=== PATIENT | female | born 1975 | race Caucasian/White ===

== ENCOUNTER 2023-02-09 09:25 | Observation (INO) | payer OTHER ==
[2023-03-09] MEDS ORDERED: EXPAREL 133 MG/10 ML VIAL IJ ONE (08:22)
[2023-03-09] MEDS ORDERED: Transderm Scop 1.5MG Patch TOP PRN (09:02)
[2023-03-09] MEDS ORDERED: Reglan 10 MG/2 ML IV ONE (09:02)
[2023-03-09] MEDS ORDERED: Pepcid 20 MG VIAL IV ONE ×2 (09:02→09:05)
[2023-03-09] MEDS ORDERED: Versed 2 MG/2 ML Injection IV PRN (09:02)
[2023-03-09] MEDS ORDERED: Transderm Scop 1.5MG Patch ONE (09:05)
[2023-03-09] MEDS ORDERED: Versed 2 MG/2 ML Injection ONE (09:05)
[2023-03-09] MEDS ORDERED: Lactated Ringers 1,000 ML IV ONE ×2 (09:05→12:12)
[2023-03-09] MEDS ORDERED: CLINDAMYCIN-D5W 900 MG/50 ML*** 900 MG/50 ML BAG IV ONE (09:05)
[2023-03-09] MEDS ORDERED: Reglan 10 MG/2 ML ONE (09:05)
[2023-03-09] MEDS ORDERED: CLINDAMYCIN-D5W 900 MG/50 ML*** 900 MG/50 ML BAG IV SCH (09:30)
[2023-03-09] MEDS ORDERED: Lactated Ringers 1,000 ML IV SCH (09:30)
[2023-03-09 09:33] LABS: Hematocrit 43.1 % (35-47); Hemoglobin 13.6 g/dL (12.0-16.0); Mean Cell Volume 84.7 fL (78-100); Mean Corpuscular Hemoglobin 26.7 pg (26-32); Mean Corpuscular Hgb Concent. 31.6 g/dL (32-36); Mean Platelet Volume 10.2 fL (7.5-11.0); Platelet Count 300 x10^3/uL (150-450); Red Blood Count 5.09 x10^6/uL (4.1-5.4); Red Cell Distribution Width 14.4 % (11.5-14.0); White Blood Count 9.3 x10^3/uL (4.0-10.5)
[2023-03-09 09:46] LABS: ALBUMIN 4.1 g/dL (3.5-5.0); ALKALINE PHOSPHATASE 78 U/L (38-126); ANION GAP 16.1 MEQ/L (5-15); BLOOD UREA NITROGEN 15 mg/dL (7-17); CHLORIDE 104 mmol/L (98-107); Calcium 8.8 mg/dL (8.4-10.2); Carbon Dioxide 22 mmol/L (22-30); Creatinine 1 0.64 mg/dL (0.52-1.04); EST GLOMERULAR FILTRATION RATE > 60.0 ML/MIN; Glucose 100 mg/dL (74-106); SGOT/AST 22 U/L (14-36); SGPT/ALT 18 U/L (0-35); SODIUM 139 mmol/L (137-145); Total Protein 7.2 g/dL (6.3-8.2)
[2023-03-09 09:46] LABS: HCG URINE TEST NEGATIVE (NEGATIVE)
[2023-03-09] MEDS ORDERED: APRESOLINE 20 MG/ML INJ ONE (09:47)
[2023-03-09 10:08] LABS: ABO TYPING O; Antibody Screen NEGATIVE (NEGATIVE); RH TYPING POSITIVE
[2023-03-09] MEDS ORDERED: Decadron 4 MG INJ ONE (11:12)
[2023-03-09] MEDS ORDERED: BRIDION 200MG/2ML IV ONE (11:12)
[2023-03-09] MEDS ORDERED: Zofran 4 MG/2 ML VIAL ONE (11:12)
[2023-03-09] MEDS ORDERED: Zemuron 100 MG/10 ML ONE (11:12)
[2023-03-09] MEDS ORDERED: DIPRIVAN 200 MG/20 ML IV ONE (11:12)
[2023-03-09] MEDS ORDERED: Astramorph-Pf 5 MG/10 ML ONE (11:12)
[2023-03-09] MEDS ORDERED: SUBLIMAZE 100 MCG/2 ML ONE (11:12)
[2023-03-09] MEDS ORDERED: Xylocaine-Mpf 2% 5 Ml Vial ONE (11:12)
[2023-03-09] MEDS ORDERED: Sensorcaine 0.25% 10 ML ONE (11:13)
[2023-03-09] MEDS ORDERED: Pre-Attached Lta Kit TP ONE (11:14)
[2023-03-09] MEDS ORDERED: OFIRMEV 100 ML IV ONE (11:14)
[2023-03-09] MEDS ORDERED: Ephedrine Sulfate 50 MG/ML ONE ×2 (11:47→12:26)
[2023-03-09] MEDS ORDERED: Narcan 0.4 MG/ML IV PRN (14:45)
[2023-03-09] MEDS ORDERED: MORPHINE SULFATE 2 MG INJ IV PRN (14:45)
[2023-03-09] MEDS ORDERED: Sodium Chloride 0.9% 10 ML FLUSH Syringe IJ PRN (14:45)
[2023-03-09] MEDS ORDERED: Zofran 4 MG/2 ML VIAL IV PRN (14:45)
[2023-03-09] MEDS ORDERED: DEMEROL 50 MG IV PRN (14:45)
[2023-03-09] MEDS ORDERED: CLARITIN 10 MG PO PRN (14:45)
[2023-03-09] MEDS ORDERED: Nubain 10 MG/ML IV PRN (14:45)
[2023-03-09 14:59] LABS: Appearance Turbid (Clear); Bacteria Rare /HPF (None Seen); Bilirubin Negative (Negative); Blood Trace (Negative); Epithelial Cells Few /HPF (None Seen); Glucose, Urine Negative (Negative); Ketones Negative (Negative); Leukocyte Esterase Negative (Negative); Nitrite Negative (Negative); Ph 5.5 (4.6-8.0); Protein,Urine Dip Trace (Negative); RBC 0-2 /HPF (0-5); Specific Gravity >=1.030 (1.005-1.030)
[2023-03-09] MEDS: BENADRYL 50 MG/ML IV PRN ×2 (16:37→23:02)
[2023-03-09] MEDS: CLINDAMYCIN-D5W 900 MG/50 ML*** 900 MG/50 ML BAG IV SCH (17:39)
[2023-03-09] MEDS: PERCOCET TABLET 5/325MG PO PRN (23:01)
[2023-03-10] MEDS: CLINDAMYCIN-D5W 900 MG/50 ML*** 900 MG/50 ML BAG IV SCH (01:23)
[2023-03-10 04:00] VITALS: RESP 16
--- NOTE | 2023-03-10 06:37 | PCM.NOTE ---
Date and Time: 03/10/2334 Subjective Assessment: pod 1 sp csection pt resting in bed and doing well. pt ambulating and tolerating diet vss afebrile abd; soft incision c/d/intact ext; no clubbing cyanosis or edema a/p sp laparotomy supracervical hysterectomy pod 1 dc home today labs pending should fu office in 2 wks Objective Exam Wound Assessment: Skin/Wound Assessment Wound/Incision Assessment Start: 03/09/23 14:31 Text: Status: Active Freq: Q4H Protocol: Document 03/10/23 04:00 LB (Rec: 03/10/23 04:09 LB [id number]) Wound/Incision Assessment Lower Posterior Abdomen Wound Assessment Shift Assessment Wound Type Incision Dressing Status Dry & Intact Drainage Amount None Drainage Odor None/Absent General Appearance Well Approximated,Open to air Comment surgery 03/09/23 Wound Photo Photo Taken No OBJECTIVE DATA Vital Signs: Vital Signs - 24 hr Temp Pulse Resp BP Pulse Ox 03/10/23 04:00 16 03/10/23 03:58 98.4 F 75 16 93/53 93 L 03/10/23 00:00 18 03/09/23 23:34 97.9 F 81 18 97/56 96 03/09/23 20:00 97.5 F 98 H 17 92/50 97 03/09/23 16:30 97.5 F 84 18 111/55 95 03/09/23 16:00 97.4 F 76 17 107/56 96 03/09/23 15:30 97.6 F 85 18 114/58 94 L 03/09/23 15:08 18 03/09/23 15:00 97.6 F 83 18 114/64 95 03/09/23 14:51 97.5 F 85 18 119/79 98 03/09/23 14:31 97.3 F 87 18 115/64 97 03/09/23 10:02 96.2 F 85 18 119/79 98 03/09/23 09:57 96.2 F 85 18 119/79 98 03/09/23 09:39 96.2 F 85 18 119/79 98 Pain Assessment - Last Documented Pain Intensity 0 Pain Scale Used 0-10 Pain Scale Intake and Output: Intake & Output 08/06/23 08/07/23 08/08/23 08/09/23 11:59 11:59 11:59 11:59 Intake Total 1187 Output Total 450 Balance 737 Weight 73.3 kg 76.4 kg Lab Results: Lab Results-Last 24 Hours 03/09/23 03/09/23 03/09/23 Range/Units 09:15 09:15 09:15 WBC 9.3 (4.0-10.5) x10^3/uL RBC 5.09 (4.1-5.4) x10^6/uL Hgb 13.6 (12.0-16.0) g/dL Hct 43.1 (35-47) % MCV 84.7 (78-100) fL MCH 26.7 (26-32) pg MCHC 31.6 L (32-36) g/dL RDW 14.4 H (11.5-14.0) % Plt Count 300 (150-450) x10^3/uL MPV 10.2 (7.5-11.0) fL Sodium 139 (137-145) mmol/L Potassium 4.0 (3.5-5.1) mmol/L Chloride 104 (98-107) mmol/L Carbon Dioxide 22 (22-30) mmol/L Anion Gap 16.1 H (5-15) MEQ/L BUN 15 (7-17) mg/dL Creatinine 0.64 (0.52-1.04) mg/dL Estimated GFR > 60.0 ML/MIN Glucose 100 (74-106) mg/dL Calcium 8.8 (8.4-10.2) mg/dL Total Bilirubin 0.40 (0.2-1.3) mg/dL AST 22 (14-36) U/L ALT 18 (0-35) U/L Alkaline Phosphatase 78 (38-126) U/L Serum Total Protein 7.2 (6.3-8.2) g/dL Albumin 4.1 (3.5-5.0) g/dL Urine Color (Yellow) Urine Appearance (Clear) Urine pH (4.6-8.0) Ur Specific [place] (1.005-1.030) Urine Protein (Negative) Urine Glucose (UA) (Negative) mg/dL Urine Ketones (Negative) Urine Blood (Negative) Urine Nitrite (Negative) Urine Bilirubin (Negative) Urine Urobilinogen (0.2) mg/dL Ur Leukocyte Esterase (Negative) U Hyaline Cast (Auto) (0-2) /LPF Urine Microscopic RBC (0-5) /HPF Urine Microscopic WBC (0-5) /HPF Ur Epithelial Cells (None Seen) /HPF Urine Bacteria (None Seen) /HPF Urine HCG, Qual (NEGATIVE) ABO Group O Rh Factor POSITIVE Antibody Screen NEGATIVE (NEGATIVE) 03/09/23 03/09/23 Range/Units 09:46 13:10 WBC (4.0-10.5) x10^3/uL RBC (4.1-5.4) x10^6/uL Hgb (12.0-16.0) g/dL Hct (35-47) % MCV (78-100) fL MCH (26-32) pg MCHC (32-36) g/dL RDW (11.5-14.0) % Plt Count (150-450) x10^3/uL MPV (7.5-11.0) fL Sodium (137-145) mmol/L Potassium (3.5-5.1) mmol/L Chloride (98-107) mmol/L Carbon Dioxide (22-30) mmol/L Anion Gap (5-15) MEQ/L BUN (7-17) mg/dL Creatinine (0.52-1.04) mg/dL Estimated GFR ML/MIN Glucose (74-106) mg/dL Calcium (8.4-10.2) mg/dL Total Bilirubin (0.2-1.3) mg/dL AST (14-36) U/L ALT (0-35) U/L Alkaline Phosphatase (38-126) U/L Serum Total Protein (6.3-8.2) g/dL Albumin (3.5-5.0) g/dL Urine Color Dark Yellow A (Yellow) Urine Appearance Turbid A (Clear) Urine pH 5.5 (4.6-8.0) Ur Specific [place] >=1.030 A (1.005-1.030) Urine Protein Trace A (Negative) Urine Glucose (UA) Negative (Negative) mg/dL Urine Ketones Negative (Negative) Urine Blood Trace (Negative) Urine Nitrite Negative (Negative) Urine Bilirubin Negative (Negative) Urine Urobilinogen 1.0 A (0.2) mg/dL Ur Leukocyte Esterase Negative (Negative) U Hyaline Cast (Auto) 3-5 A (0-2) /LPF Urine Microscopic RBC 0-2 (0-5) /HPF Urine Microscopic WBC 3-5 (0-5) /HPF Ur Epithelial Cells Few (None Seen) /HPF Urine Bacteria Rare A (None Seen) /HPF Urine HCG, Qual NEGATIVE (NEGATIVE) ABO Group Rh Factor Antibody Screen (NEGATIVE) Assessment/Plan (1) S/P abdominal supracervical subtotal hysterectomy Current Visit: Yes Status: Acute Code(s): Z90.711 - ACQUIRED ABSENCE OF UTERUS WITH REMAINING CERVICAL STUMP (2) Fibroid uterus Current Visit: Yes Status: Acute Code(s): D25.9 - LEIOMYOMA OF UTERUS, UNSPECIFIED
[2023-03-10 06:57] LABS: Hematocrit 36.5 % (35-47); Hemoglobin 11.3 g/dL (12.0-16.0); Mean Cell Volume 85.7 fL (78-100); Mean Corpuscular Hemoglobin 26.5 pg (26-32); Mean Platelet Volume 10.6 fL (7.5-11.0); Platelet Count 278 x10^3/uL (150-450); Red Blood Count 4.26 x10^6/uL (4.1-5.4); Red Cell Distribution Width 15.1 % (11.5-14.0); White Blood Count 12.7 x10^3/uL (4.0-10.5)
[2023-03-10 07:12] LABS: ALBUMIN 3.5 g/dL (3.5-5.0); ALKALINE PHOSPHATASE 70 U/L (38-126); ANION GAP 12.7 MEQ/L (5-15); BLOOD UREA NITROGEN 12 mg/dL (7-17); CHLORIDE 103 mmol/L (98-107); Calcium 8.3 mg/dL (8.4-10.2); Carbon Dioxide 25 mmol/L (22-30); Creatinine 1 0.71 mg/dL (0.52-1.04); EST GLOMERULAR FILTRATION RATE > 60.0 ML/MIN; Glucose 89 mg/dL (74-106); Potassium 3.7 mmol/L (3.5-5.1); SGOT/AST 23 U/L (14-36); SGPT/ALT 19 U/L (0-35); SODIUM 137 mmol/L (137-145); Total Protein 6.2 g/dL (6.3-8.2)
--- NOTE | 2023-03-10 08:03 | PCM.DS ---
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 pt underwent procedure without complication and was able to ambulate and tolerate diet. incision appears clean and dry. pt with stable labs. pt was advised to fu in office in 2 wks for postop evaluation. all questions answered to her satisfaction and was given percocet for pain management 20 tabs. - Vitals & Intake/Output Vital Signs: Vital Signs Temperature 97.7 F 03/10/23 06:43 Pulse Rate 80 03/10/23 06:43 Respiratory Rate 16 03/10/23 06:43 Blood Pressure 102/56 03/10/23 06:43 O2 Sat by Pulse Oximetry 96 03/10/23 06:43 Intake & Output: Intake & Output 03/07/23 03/08/23 03/09/23 03/10/23 11:59 11:59 11:59 11:59 Intake Total 1312 Output Total 800 Balance 512 Weight 73.3 kg 76.4 kg - Lab Result Diagrams: 03/10/23 06:40 03/10/23 06:40 Lab Results-Last 24 Hrs: Lab Results-Last 24 Hours 03/09/23 03/09/23 03/09/23 Range/Units 09:15 09:15 09:15 WBC 9.3 (4.0-10.5) x10^3/uL RBC 5.09 (4.1-5.4) x10^6/uL Hgb 13.6 (12.0-16.0) g/dL Hct 43.1 (35-47) % MCV 84.7 (78-100) fL MCH 26.7 (26-32) pg MCHC 31.6 L (32-36) g/dL RDW 14.4 H (11.5-14.0) % Plt Count 300 (150-450) x10^3/uL MPV 10.2 (7.5-11.0) fL Sodium 139 (137-145) mmol/L Potassium 4.0 (3.5-5.1) mmol/L Chloride 104 (98-107) mmol/L Carbon Dioxide 22 (22-30) mmol/L Anion Gap 16.1 H (5-15) MEQ/L BUN 15 (7-17) mg/dL Creatinine 0.64 (0.52-1.04) mg/dL Estimated GFR > 60.0 ML/MIN Glucose 100 (74-106) mg/dL Calcium 8.8 (8.4-10.2) mg/dL Total Bilirubin 0.40 (0.2-1.3) mg/dL AST 22 (14-36) U/L ALT 18 (0-35) U/L Alkaline Phosphatase 78 (38-126) U/L Serum Total Protein 7.2 (6.3-8.2) g/dL Albumin 4.1 (3.5-5.0) g/dL Urine Color (Yellow) Urine Appearance (Clear) Urine pH (4.6-8.0) Ur Specific [place] (1.005-1.030) Urine Protein (Negative) Urine Glucose (UA) (Negative) mg/dL Urine Ketones (Negative) Urine Blood (Negative) Urine Nitrite (Negative) Urine Bilirubin (Negative) Urine Urobilinogen (0.2) mg/dL Ur Leukocyte Esterase (Negative) U Hyaline Cast (Auto) (0-2) /LPF Urine Microscopic RBC (0-5) /HPF Urine Microscopic WBC (0-5) /HPF Ur Epithelial Cells (None Seen) /HPF Urine Bacteria (None Seen) /HPF Urine HCG, Qual (NEGATIVE) ABO Group O Rh Factor POSITIVE Antibody Screen NEGATIVE (NEGATIVE) 03/09/23 03/09/23 03/10/23 Range/Units 09:46 13:10 06:40 WBC 12.7 H (4.0-10.5) x10^3/uL RBC 4.26 (4.1-5.4) x10^6/uL Hgb 11.3 L (12.0-16.0) g/dL Hct 36.5 (35-47) % MCV 85.7 (78-100) fL MCH 26.5 (26-32) pg MCHC 31.0 L (32-36) g/dL RDW 15.1 H (11.5-14.0) % Plt Count 278 (150-450) x10^3/uL MPV 10.6 (7.5-11.0) fL Sodium (137-145) mmol/L Potassium (3.5-5.1) mmol/L Chloride (98-107) mmol/L Carbon Dioxide (22-30) mmol/L Anion Gap (5-15) MEQ/L BUN (7-17) mg/dL Creatinine (0.52-1.04) mg/dL Estimated GFR ML/MIN Glucose (74-106) mg/dL Calcium (8.4-10.2) mg/dL Total Bilirubin (0.2-1.3) mg/dL AST (14-36) U/L ALT (0-35) U/L Alkaline Phosphatase (38-126) U/L Serum Total Protein (6.3-8.2) g/dL Albumin (3.5-5.0) g/dL Urine Color Dark Yellow A (Yellow) Urine Appearance Turbid A (Clear) Urine pH 5.5 (4.6-8.0) Ur Specific [place] >=1.030 A (1.005-1.030) Urine Protein Trace A (Negative) Urine Glucose (UA) Negative (Negative) mg/dL Urine Ketones Negative (Negative) Urine Blood Trace (Negative) Urine Nitrite Negative (Negative) Urine Bilirubin Negative (Negative) Urine Urobilinogen 1.0 A (0.2) mg/dL Ur Leukocyte Esterase Negative (Negative) U Hyaline Cast (Auto) 3-5 A (0-2) /LPF Urine Microscopic RBC 0-2 (0-5) /HPF Urine Microscopic WBC 3-5 (0-5) /HPF Ur Epithelial Cells Few (None Seen) /HPF Urine Bacteria Rare A (None Seen) /HPF Urine HCG, Qual NEGATIVE (NEGATIVE) ABO Group Rh Factor Antibody Screen (NEGATIVE) 03/10/23 Range/Units 06:40 WBC (4.0-10.5) x10^3/uL RBC (4.1-5.4) x10^6/uL Hgb (12.0-16.0) g/dL Hct (35-47) % MCV (78-100) fL MCH (26-32) pg MCHC (32-36) g/dL RDW (11.5-14.0) % Plt Count (150-450) x10^3/uL MPV (7.5-11.0) fL Sodium 137 (137-145) mmol/L Potassium 3.7 (3.5-5.1) mmol/L Chloride 103 (98-107) mmol/L Carbon Dioxide 25 (22-30) mmol/L Anion Gap 12.7 (5-15) MEQ/L BUN 12 (7-17) mg/dL Creatinine 0.71 (0.52-1.04) mg/dL Estimated GFR > 60.0 ML/MIN Glucose 89 (74-106) mg/dL Calcium 8.3 L (8.4-10.2) mg/dL Total Bilirubin 0.40 (0.2-1.3) mg/dL AST 23 (14-36) U/L ALT 19 (0-35) U/L Alkaline Phosphatase 70 (38-126) U/L Serum Total Protein 6.2 L (6.3-8.2) g/dL Albumin 3.5 (3.5-5.0) g/dL Urine Color (Yellow) Urine Appearance (Clear) Urine pH (4.6-8.0) Ur Specific [place] (1.005-1.030) Urine Protein (Negative) Urine Glucose (UA) (Negative) mg/dL Urine Ketones (Negative) Urine Blood (Negative) Urine Nitrite (Negative) Urine Bilirubin (Negative) Urine Urobilinogen (0.2) mg/dL Ur Leukocyte Esterase (Negative) U Hyaline Cast (Auto) (0-2) /LPF Urine Microscopic RBC (0-5) /HPF Urine Microscopic WBC (0-5) /HPF Ur Epithelial Cells (None Seen) /HPF Urine Bacteria (None Seen) /HPF Urine HCG, Qual (NEGATIVE) ABO Group Rh Factor Antibody Screen (NEGATIVE) - Procedures and Test Procedures and Tests throughout Hospitalization: Therapy Orders & Screens 03/10/23 07:00 Incentive Spirometry UD Comment: post op Diagnosis: FIBROID UTERUS, ABNORMAL UTERINE BLEED Discharge Exam Wound Assessment: Skin/Wound Assessment Wound/Incision Assessment Start: 03/09/23 14:31 Text: Status: Active Freq: Q4H Protocol: Document 03/10/23 04:00 LB (Rec: 03/10/23 04:09 LB [id number]) Wound/Incision Assessment Lower Posterior Abdomen Wound Assessment Shift Assessment Wound Type Incision Dressing Status Dry & Intact Drainage Amount None Drainage Odor None/Absent General Appearance Well Approximated,Open to air Comment surgery 03/09/23 Wound Photo Photo Taken No Final Diagnosis/Problem List - Final Discharge Diagnosis/Problem (1) S/P abdominal supracervical subtotal hysterectomy Current Visit: Yes Status: Acute Code(s): Z90.711 - ACQUIRED ABSENCE OF UTERUS WITH REMAINING CERVICAL STUMP (2) Fibroid uterus Current Visit: Yes Status: Acute Code(s): D25.9 - LEIOMYOMA OF UTERUS, UNSPECIFIED - Discharge Disposition: Home, Self-Care Condition: Stable Prescriptions: New Oxycodone HCl/Acetaminophen [Percocet 5-325 mg Tablet] 1 each PO Q6H PRN PRN #20 tablet MDD 4 PRN Reason: Pain No Action Tranexamic Acid 650 mg PO UD Montelukast Sodium 10 mg [Singulair 10 MG] 10 mg PO DAILY Albuterol Sulfate [Proair Respiclick] 90 mcg IH Q4H PRN PRN Reason: Shortness Of Breath Ferrous Sulfate [Slow Fe] 142 mg PO DAILY Cholecalciferol (Vitamin D3) [Vitamin D] 5,000 unit PO DAILY Biotin 100 mcg PO DAILY Instructions: Hysterectomy (DC) Follow up with: GOSIA PEDERSON NP [Primary Care Provider] - BEKA VALLE DO [ACTIVE STAFF] - 2 weeks
[2023-03-10] MEDS: PERCOCET TABLET 5/325MG PO PRN (09:11)
[2023-03-10] MEDS ORDERED: HOLD NARCOTIC ANALGESICS AND SEDATIVES X24 HR MC SCH (10:00)
[2023-03-10] MEDS ORDERED: ENOXAPARIN SODIUM SQ SCH (10:00)
[2023-03-10] MEDS: BENADRYL 50 MG/ML IV PRN (10:47)
[2023-03-10 11:35] VITALS: BP 98/56; PULSE 77; TEMP 98; O2SAT 99
--- NOTE | 2023-03-11 09:53 | OP ---
SURGERY DATE/TIME: 03/09/2023 1127 PREOPERATIVE DIAGNOSIS: Abnormal uterine bleeding, chronic pelvic pain and fibroid uterus. POSTOPERATIVE DIAGNOSIS: Abnormal uterine bleeding, chronic pelvic pain and fibroid uterus with aborting myoma or cervical fibroid. PROCEDURES: 1) Laparotomy supracervical hysterectomy. 2) Bilateral salpingectomy. 3) Removal of aborting myoma. SURGEON: Harish Jeffery D.O. DESKTOP SUPPORT MANAGER: Ada Savage surgical product sales consultant. ANESTHESIA: General. ESTIMATED BLOOD LOSS: 100 cc. COMPLICATIONS: None. INDICATIONS: The risks, benefits, indications and alternatives of the procedure were reviewed with the patient prior to the procedure. The patient understood the risk of infection, bleeding, bowel injury, bladder injury, pelvic infection and thromboembolic disorder associated with the surgery and desires to have this surgery as a possible means to alleviate her current medical condition. DESCRIPTION OF PROCEDURE AND FINDINGS: At this point the patient is taken to the operating room placed in the supine position where general anesthesia was given without complication. She was prepped and draped in the usual sterile fashion. A Pfannenstiel incision was made approximately 2 cm above the symphysis pubis and extended sharply through the rectus fascia. The fascia was then incised bilaterally with curved Fernandez scissors and the muscles of the anterior abdominal wall were in the midline by sharp and blunt dissection. The peritoneum was then grasped between two pickups elevated and entered sharply with Metzenbaum scissors. The pelvis is then examined and was noted to have an approximately 12 weeks size uterus with a bulky cervix that was noted. From this point an O'Zachery-O'Katz retractor was placed into the incision and the bowel packed away with moist laparotomy sponges. Tenaculum was placed on the fundus of the uterus as a means to elevate the uterus. At this point LigaSure was then placed over the left utero-ovarian ligament where it was clamped, coagulated and cut and taken down to the round ligament towards the uterine vasculature where the bladder flap was developed on its side. At that point the anterior lip of the broad ligament was incised along the bladder reflection to the midline on its side on the left side. Again, the bladder was then gently dissected off the lower uterine segment and the cervix with a sponge stick. The uterine artery at that time was skeletonized on its side clamped with Giulia clamp, transected and suture ligated with 0 Vicryl suture and hemostasis was obtained. The same procedure was performed on the right side where the right utero-ovarian ligament was clamped, coagulated and cut taken down to the round ligament towards the uterine vasculature where at this point the uterine arteries were skeletonized, clamped with Giulia clamps transected and suture ligated with 0 Vicryl sutures and again hemostasis was assured. At this point again the bladder was gently dissected off the lower uterine segment on the right side and the cervix with sponge stick. From this point cautery was used to amputate the uterus from its cervical stump and was done so without complication removing the uterus. During the process of removing the uterus, there was a large myoma approximately 4 x 3 cm in dimension that was aborting through the cervical canal. At this point the entire myoma was removed and there was minimal bleeding that was noted. From this point the cervical stump region was closed with continuous stitches of 0 Vicryl suture and hemostasis obtained. The bilateral fallopian tubes were excised using LigaSure placed on the mesosalpinx and was excised and hemostasis was obtained. From this point the pelvis is then irrigated copiously with warm normal saline. The bilateral ovaries appeared to be within normal limits and there were no gross abnormalities that were noted. All operative sponges and instruments were removed from the patient's abdomen. At this point the muscles of the peritoneum were closed with 2-0 chromic suture and the fascia was closed with running 0 Vicryl and hemostasis obtained. The subcutaneous layer was closed with 3-0 Vicryl suture and the skin was closed with absorbable tori called INSORB. Sponge, lap and instruments counts were correct x2. The patient was then taken to the recovery room in stable condition.
== END 2023-03-10 14:05 | disposition home or self-care (01) ==
LOC: MED SURG 03-09 08:21 → INTOOBSV 03-09 08:21 → EDSTATUS 03-09 14:23
PROVIDERS: ADMIT Obstetrics & Gynecology; ATTEND Obstetrics & Gynecology
DX: D25.9 Leiomyoma of uterus, unspecified (principal); N93.9 Abnormal uterine and vaginal bleeding, unspecified; R10.2 Pelvic and perineal pain
CPT/HCPCS: 36415; 64488; 76937; 80053; 81001; 81025; 85027; 86850; 86900; 86901; 87086; J0360; J1100; J1200; J2175; J2250; J2270; J2274; J2405; J2704; J3010; A9270-GY